=== PATIENT | male | born 1945 | race Asian ===

== ENCOUNTER 2017-11-19 11:21 | Emergency (ER) | payer OTHER, MEDICAID ==
[~2017-11-19] VITALS: Ht 177.8 cm; Wt 86.2 kg
[2017-11-19 11:25] VITALS: BP_SYST 148
[2017-11-19] MEDS ORDERED: NACL 0.9% 1,000 ML IV ONE (11:25)
--- NOTE | 2017-11-19 11:25 | NUR ---
Arrived via [facility] S/P syncopal episode in the suana, he sat down before passing out, he regained conciousness while seated, no trauma. He had a similar episode in a suana one month ago, he did not follow up with PCP. Placed in room 7. Placed on telemetry monitor, blood pressure machine and pulse oximeter. To gown for exam. Side rails up. Report given to Ida WYATT.
[2017-11-19] MEDS ORDERED: ASPIRIN 81 MG TAB.CHEW PO ONE (11:30)
--- NOTE | 2017-11-19 11:35 | NUR ---
ER Dr. Ruvalcaba at bedside examining patient.
[2017-11-19 11:50] LABS: BASOPHILS % (AUTO) 0.8 % (0.0-2.0); EOSINOPHILS # (AUTO) 0.1 K/uL (0.0-0.4); EOSINOPHILS % (AUTO) 2.4 % (0.0-4.0); HEMOGLOBIN 14.7 g/dL (14.0-18.0); LYMPHOCYTES # (AUTO) 1.6 K/uL (1.0-5.5); LYMPHOCYTES % (AUTO) 29.8 % (20.5-51.5); MEAN CORPUSCULAR HEMOGLOBIN 33 pg (27-31); MEAN CORPUSCULAR HGB CONC 33 % (32-36); MEAN CORPUSCULAR VOLUME 98 fL (79.0-98.0); MONOCYTES # (AUTO) 0.4 K/uL (0.0-1.0); MONOCYTES % (AUTO) 7.8 % (1.7-9.3); NEUTROPHILS # (AUTO) 3.2 K/uL (1.8-7.7); NEUTROPHILS % (AUTO) 59.2 % (40.0-70.0); PLATELET COUNT (AUTO) 208 K/uL (130-430); RED BLOOD CELL COUNT(AUTO) 4.51 MIL/uL (4.2-6.2); RED CELL DISTRIBUTION WIDTH 12.5 % (9.0-15.0); WHITE BLOOD COUNT (AUTO) 5.3 K/uL (4.8-10.8)
--- NOTE | 2017-11-19 11:50 | NUR ---
TAKEN TO [place]IOLOG[place] [facility]
[2017-11-19 11:57] LABS: ANION GAP 7 (5-15); CALCIUM 9.6 mg/dL (8.4-11.0); CHLORIDE 106 mmol/L (98-107); CREATININE 1.47 mg/dL (0.55-1.30); GLUCOSE 139 mg/dL (70-99); POTASSIUM 3.7 mmol/L (3.5-5.1); SODIUM SERUM 142 mmol/L (136-145); UREA NITROGEN, BLOOD 23 mg/dL (8-21)
[2017-11-19 12:00] LABS: PROTHROMBIN TIME 10.4 SECS (9.5-12.5)
[2017-11-19 12:01] LABS: ALANINE AMINOTRANSFERASE 24 U/L (12-78); ALCOHOL, BLOOD < 3 mg/dL (<10); AMYLASE 43 U/L (0-100); ASPARTATE AMINOTRANSFERASE 17 U/L (10-37); LIPASE 106 U/L (73-393); TOTAL BILIRUBIN 0.6 mg/dL (0.0-1.0)
--- NOTE | 2017-11-19 12:15 | NUR ---
Pt returned from radiology in stable condition.
--- NOTE | 2017-11-19 12:20 | NUR ---
Medications were given, pt tolerated well. No adverse reaction, will continue to monitor.
--- NOTE | 2017-11-19 13:35 | NUR ---
Urine collected and sent to LAB.
[2017-11-19 13:54] LABS: BILIRUBIN,URINE NEGATIVE (NEGATIVE); BLOOD, URINE NEGATIVE (NEGATIVE); CLARITY/URINE CLEAR (CLEAR); COLOR,URINE YELLOW (YELLOW); GLUCOSE,URINE NEGATIVE (NEGATIVE); KETONES,URINE NEGATIVE (NEGATIVE); LEUKOCYTE ESTERASE ,URINE NEGATIVE (NEGATIVE); NITRITE, URINE NEGATIVE (NEGATIVE); PROTEIN URINE NEGATIVE (NEGATIVE); UROBILINOGEN,URINE 0.2 (0.2-1.0)
[2017-11-19 14:17] LABS: BARBITURATE, URINE NEGATIVE (NEG <=200); BENZODIAZEPINE, URINE NEGATIVE (NEG <=150); CANNABINOID, URINE NEGATIVE (NEG <=50); COCAINE, URINE NEGATIVE (NEG <=150); METHAMPHETAMINES SCREEN,URINE NEGATIVE (NEG <=500); OPIATE, URINE NEGATIVE (NEG <=100); PHENCYCLIDINE SCREEN,URINE NEGATIVE (NEG <=25); UR TRICYCLIC ANTIDEPRESSANTS NEGATIVE (NEG <=300); URINE AMPHETAMINE NEGATIVE (NEG <=500); URINE METHADONE NEGATIVE (NEG <=200); URINE OXYCODONE SCREEN NEGATIVE (NEG <=100); URINE PROPOXYPHENE SCREEN NEGATIVE (NEG <=300)
[2017-11-19 14:22] VITALS: BP_SYST 132
--- NOTE | 2017-11-19 14:22 | NUR ---
Patient given written and verbal discharge instructions and verbalizes understanding. ER MD discussed with patient the results and treatment provided. Patient in stable condition. ID arm band removed. IV catheter removed intact and dressing applied, no active bleeding. No Rx given. Patient educated on pain management and to follow up with PMD. Pain Scale 0. Opportunity for questions provided and answered. Medication side effect fact sheet provided.
== END 2017-11-19 14:22 | disposition home or self-care (01) ==
LOC: SED 11:21
DX: T67.5XXA Heat exhaustion, unspecified, initial encounter (principal); R55 Syncope and collapse; X58.XXXA Exposure to other specified factors, initial encounter; Y93.89 Activity, other specified; Y92.89 Other specified places as the place of occurrence of the external cause; Y99.8 Other external cause status
CPT/HCPCS: 36415; 70450; 71045; 80053; 80307; 81003; 82150; 82550; 83690; 84484; 85025; 85610; 85730; 93005; 96360; 99285; G0482; J7030